=== PATIENT | male | born 2005 | race Caucasian/White ===

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

== ENCOUNTER 2025-04-13 22:09 | Emergency (ER) | payer SELFPAY ==
[~2025-04-13] VITALS: Ht 162.5 cm; Wt 63.5 kg
[2025-04-13] MEDS ORDERED: Ondansetron Hydrochloride 4 MG TAB SL ONE (22:45)
[2025-04-13] MEDS ORDERED: IBUPROFEN 600 MG TAB PO ONE (22:50)
[2025-04-13] MEDS ORDERED: ACETAMINOPHEN 325 MG TAB PO ONE (22:50)
[2025-04-13 23:04] LABS: BASO # 0.0 10*3/uL (0.0-0.1); BASO % 0.3 % (0.0-1.0); EOS # 0.1 10*3/uL (0.0-0.4); EOS % 0.9 % (1.0-4.0); MEAN CELL VOLUME 83.5 fl (80.0-94.0); MEAN CORPUSCULAR HGB 29.1 pg (27.0-31.0); MEAN PLATELET VOLUME 9.0 fl (9.6-12.3); MONO # 0.8 10*3/uL (0.1-1.0); MONO % 8.9 % (3.0-9.0); NEUT # 7.6 10*3/uL (2.3-7.9); NEUT % 83.1 % (47.0-73.0); NUCLEATED RED BLOOD CELL 0.0 % (0.0-0.0); NUCLEATED RED BLOOD CELL 0.0 10*3/uL (0.0-0.0); PLATELET COUNT AUTOMATED 266 10*3/uL (130-400); RED CELL DISTRI WIDTH 12.0 % (0-14.5)
[2025-04-13 23:22] LABS: BUN 12 mg/dl (9-23)
== END 2025-04-13 23:43 | disposition home or self-care (01) ==
LOC: ED 22:09
PROVIDERS: Nurse Practitioner Family
DX: B34.9 Viral infection, unspecified (principal); R11.2 Nausea with vomiting, unspecified; Z20.822 Contact with and (suspected) exposure to COVID-19